=== PATIENT | male | born 1990 | race Caucasian/White ===

== ENCOUNTER 2016-07-12 09:38 | Emergency (ER) | payer SELFPAY ==
[~2016-07-12] VITALS: Ht 177.8 cm; Wt 80.3 kg
--- NOTE | 2016-07-12 09:40 | NUR ---
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 SKIN IS WARM AND DRY. RESP IS EVEN AND UNLABORED WITH NAD NOTED. AWAITING MD FOR EVAL.
[2016-07-12] MEDS ORDERED: OLANZAPINE 10 MG VIAL IM ONE ×2 (09:49→10:00)
--- NOTE | 2016-07-12 09:58 | NUR ---
PATIENT PLACED ON MONITOR, WILL CONTINUOUSLY MONITOR THE PATIENT.
[2016-07-12] MEDS ORDERED: HALOPERIDOL LACTATE INJ 5 MG/ML VIAL ONE (13:30)
[2016-07-12] MEDS ORDERED: LORAZEPAM INJ 2 MG/ML VIAL ONE (13:30)
--- NOTE | 2016-07-12 13:42 | NUR ---
STILL AGITATED/SCREAMING,MEDICATED ORDERED
[2016-07-12] MEDS ORDERED: LORAZEPAM INJ 2 MG/ML VIAL IM ONE (14:00)
[2016-07-12] MEDS ORDERED: HALOPERIDOL LACTATE INJ 5 MG/ML VIAL IM ONE (14:00)
[2016-07-12 15:13] LABS: APPEARANCE,URINE Slightly Cloudy (CLEAR); BILIRUBIN,URINE Negative (NEGATIVE); BLOOD, URINE Moderate Ery/uL (NEGATIVE); COLOR,URINE Yellow (YELLOW); KETONES,URINE 40 (NEGATIVE); LEUKOCYTE ESTERASE ,URINE Negative (NEGATIVE); NITRITE, URINE Negative (NEGATIVE); PROTEIN,URINE Negative (NEGATIVE); UGLUCOSE Negative (NEGATIVE)
[2016-07-12 15:15] LABS: BASOPHILS # (AUTO) 0.1 /CMM (0.0-0.2); BASOPHILS % (AUTO) 0.6 % (0.0-2.0); EOSINOPHILS # (AUTO) 0.2 /CMM (0.0-0.7); HEMATOCRIT 43 % (39-51); HEMOGLOBIN 14.2 g/dL (13.5-17.5); LYMPHOCYTES # (AUTO) 2.3 /CMM (0.8-4.8); LYMPHOCYTES % (AUTO) 22.3 % (20.0-44.0); MEAN CORPUSCULAR HEMOGLOBIN 28 PG (26.0-33.0); MEAN CORPUSCULAR HGB CONC 33 g/dl (31.0-36.0); MEAN CORPUSCULAR VOLUME 84 fL (80-96); MONOCYTES % (AUTO) 9.6 % (2.0-12.0); NEUTROPHILS # (AUTO) 6.5 /CMM (1.8-8.9); NEUTROPHILS % (AUTO) 65.5 % (43.0-81.0); PLATELET COUNT (AUTO) 227 /CMM (150-450); RDW COEFFICIENT OF VARIATION 14.2 (11.5-15.0); RED BLOOD CELL COUNT(AUTO) 5.11 MIL/uL (4.5-6.0); WHITE BLOOD COUNT (AUTO) 10.1 K/uL (4.3-11.0)
[2016-07-12 15:32] LABS: BILIRUBIN,DIRECT 0.2 mg/dL (0.0-0.2); CALCIUM, SERUM 8.3 mg/dL (8.5-10.1); CREATININE 0.7 mg/dL (0.6-1.3); PHENCYCLIDINE SCREEN,URINE NEGATIVE (NEGATIVE); POTASSIUM 3.8 mmol/L (3.5-5.1); TOTAL PROTEIN, SERUM 7.2 g/dL (6.4-8.2)
[2016-07-12 15:33] LABS: CANNABINOID, URINE POSITIVE (NEGATIVE); SALICYLATE 2.7 mg/dL (2.8-20.0)
[2016-07-12 15:36] LABS: RBC,URINE 0-2 /HPF (0-2)
[2016-07-12 15:37] LABS: ADD URINE CULTURE NO; BACTERIA,URINE Rare /HPF (None Seen); SQUAMOUS EPITHELIAL CELL,UR Rare /HPF (None Seen)
[2016-07-12 15:38] LABS: URINE AMORPHOUS URATE Rare /HPF (None Seen)
--- NOTE | 2016-07-12 15:49 | NUR ---
RESTING QUIETLY, ASLEEP BUT EASILY AROUSABLE. VSS.
--- NOTE | 2016-07-12 17:50 | NUR ---
Patient is resting comfortably in bed with eyes closed. Easily aroused. VSS
--- NOTE | 2016-07-12 19:30 | NUR ---
PT CALM, SLEEPING ON BED. RESTRAINTS REMOVED.
--- NOTE | 2016-07-12 19:39 | NUR ---
PT RESTING COMFORTABLY ON BED. AWAKENS TO NAME THEN RETURNS TO SLEEP. DENIES COMPLAINT. VSS, NAD NOTED. WILL CONT TO MONITOR.
--- NOTE | 2016-07-12 19:40 | NUR ---
PLACED ON 3 LEAD MONITOR. SINUS SAYRA [id number]. VSS, NAD NOTED.
--- NOTE | 2016-07-12 21:36 | NUR ---
PT RESTING COMFORTABLY LEFT LATERAL ON BED. AWAKENS TO NAME. GIVEN WARM BLANKET. PT RETURNS TO SLEEP. DENIES COMPLAINT. VSS, NAD NOTED. WILL CONT TO MONITOR.
--- NOTE | 2016-07-12 23:07 | NUR ---
PT RESTING COMFORTABLY SUPINE ON BED. AWAKENS TO NAME. ADDITIONAL BLANKETS PROVIDED. PT RETURNS TO SLEEP. DENIES COMPLAINT. VSS, NAD NOTED. WILL CONT TO MONITOR.
--- NOTE | 2016-07-13 00:13 | NUR ---
URINAL PROVIDED FOR PT. GIVEN ADDITIONAL BLANKETS REQUESTED. VSS, NAD NOTED. PT RETURNS TO SLEEP.
--- NOTE | 2016-07-13 01:42 | NUR ---
PT RESTING COMFORTABLY SEMIFOWLERS ON BED. AWAKENS TO NAME. A+OX1; ORIENTED TO NAME ONLY. PT RETURNS TO SLEEP; ABLE TO INDEPENDENTLY MAINTAIN AIRWAY. DENIES COMPLAINT. VSS, NAD NOTED. WILL CONT TO MONITOR.
--- NOTE | 2016-07-13 03:31 | NUR ---
PT RESTING COMFORTABLY RIGHT LATERAL ON BED. AWAKENS TO NAME. A+OX1; REMAINS ORIENTED TO NAME ONLY; HOWEVER, PT KNOWS HE IS IN AN EMERGENCY DEPARTMENT, BUT CANNOT SPECIFY WHICH HOSPITAL. PT RETURNS TO SLEEP; ABLE TO INDEPENDENTLY MAINTAIN AIRWAY. DENIES COMPLAINT. VSS, NAD NOTED. WILL CONT TO MONITOR.
--- NOTE | 2016-07-13 05:39 | NUR ---
PT RESTING COMFORTABLY LEFT LATERAL ON BED. AWAKENS TO NAME. A+OX1; REMAINS ORIENTED TO NAME ONLY; HOWEVER, PT KNOWS HE IS IN AN EMERGENCY DEPARTMENT, BUT CANNOT SPECIFY WHICH HOSPITAL. PT RETURNS TO SLEEP; ABLE TO INDEPENDENTLY MAINTAIN AIRWAY. DENIES COMPLAINT. VSS, NAD NOTED. WILL CONT TO MONITOR.
[2016-07-13 06:02] VITALS: BP 132/70
--- NOTE | 2016-07-13 06:02 | NUR ---
PT IS A/OX4 BREATHING EFFORTLESSLY ON ROOM AIR, PT WOKE UP AND IS WALKING WITH A STEADY GAIT, PT GIVEN ACI AND PRESCRIPTION, PT DECLINED THE PRESCRIPTION, MD MADE AWARE, PT WALKED OUT OF THE ER WITH A STEADY GAIT.
== END 2016-07-13 06:03 | disposition home or self-care (01) ==
LOC: ER 09:41
DX: F20.0 Paranoid schizophrenia (principal); F15.10 Other stimulant abuse, uncomplicated
CPT/HCPCS: 36415; 80048-TC; 80076-TC; 80305; 81000-TC; 85025-TC; A4606; G0480; G6039-TC; J1630; J2060; J3490; Z7610

== ENCOUNTER 2018-06-22 22:02 | Emergency (ER) | payer MEDICAID ==
[~2018-06-22] VITALS: Ht 180.3 cm; Wt 80.3 kg
[2018-06-22 22:14] VITALS: BP 140/91
== END 2018-06-23 02:06 | disposition home or self-care (01) ==
LOC: ER 22:02
DX: S00.83XA Contusion of other part of head, initial encounter (principal); F15.10 Other stimulant abuse, uncomplicated; F20.9 Schizophrenia, unspecified; Z59.0 Homelessness; Y08.89XA Assault by other specified means, initial encounter; Y93.89 Activity, other specified; Y92.89 Other specified places as the place of occurrence of the external cause; Y99.8 Other external cause status
CPT/HCPCS: 70450-TC; 70486-TC; 80305